=== PATIENT | male | born 1955 | race Caucasian/White ===

== ENCOUNTER 2019-08-09 13:57 | Inpatient (IN) | payer BC ==
[2019-08-09] MEDS ORDERED: MORPHINE 4 MG/ML SYR IV PRN (15:08)
[2019-08-09 15:26] VITALS: BMI 37.5
--- NOTE | 2019-08-09 15:43 | RAD REPORT ---
EXAM DESCRIPTION: RAD - Chest Pa And Lat (2 Views) - 08/09/2019 3:31 pm CLINICAL HISTORY: DIVERTICULITIES WITH MICROPERFORATION Chest pain. COMPARISON: CHEST PA AND LAT 2 VIEW dated 01/17/2009; CHEST PA AND LAT 2 VIEW dated 05/21/2003; Abdome n Pelvis W Contrast dated 08/09/2019 FINDINGS: Linear atelectasis is present in the left lung base with a small left pleural effusion. Th e lungs are otherwise emphysematous. The heart is mildly enlarged in size. No displaced fractures.
[2019-08-09 15:45] LABS: Absolute Lymphocytes (CBC) 1.7 K/uL (0.7-4.9); Basophils % 0.8 % (0-1.3); Lymphocytes % 15.8 % (15.3-44.8); MPV 7.7 fL (7.6-11.3); RBC Red Blood Cell Count 4.12 M/uL (4.33-5.43)
[2019-08-09] MEDS ORDERED: INFLUENZA VACCINE (for 3y+) 0.5 ML DOSE IMVAC ONE (16:00)
[2019-08-09] MEDS ORDERED: PNEUMOCOCCAL VACCINE 0.5 ML IMVAC ONE (16:00)
[2019-08-09] MEDS: NACHLORIDE 0.45% 1,000 ML IV SCH ×2 (16:00→22:40)
[2019-08-09 16:30] LABS: ALT/SGPT 22 U/L (12-78); AST/SGOT 20 U/L (15-37); Albumin 3.1 g/dL (3.4-5.0); Alkaline Phosphatase 79 U/L (45-117); BUN Blood Urea Nitrogen 10 mg/dL (7-18); Bicarbonate 25 mmol/L (21-32); Bilirubin Total 0.4 mg/dL (0.2-1.0); Carcinoembryonic Antigen 33.9 ng/mL (0-5.0); Glucose Level 85 mg/dL (74-106); Potassium 3.8 mmol/L (3.5-5.1); Sodium Level 139 mmol/L (136-145)
[2019-08-09] MEDS: METRONIDAZOLE 500mg IVPB 500 MG/100 ML BAG IV SCH ×2 (17:14→23:33)
[2019-08-09 18:23] LABS: Urine Appearance CLEAR; Urine Bilirubin NEGATIVE (NEG); Urine Blood NEGATIVE (NEG); Urine Color YELLOW; Urine Glucose NEGATIVE (NEG); Urine Protein NEGATIVE (NEG); Urine Specific Gravity >=1.030 (1.005-1.030); Urine Urobilinogen 0.2 mg/dL (0.2-1.0)
--- NOTE | 2019-08-09 19:14 | RAD REPORT ---
EXAM DESCRIPTION: US - Liver Only - 08/09/2019 6:39 pm CLINICAL HISTORY: radiologist recommends liver us to r/o mets Abdominal pain COMPARISON: Abdomen Pelvis W Contrast dated 08/09/2019 FINDINGS: The liver demonstrates diffuse fatty infiltration.Evaluation of the liver parenchyma was v leeanne limited due to the lack of sonographic penetrance and bowel gas shadowing. Assessment of the princess ent's known liver masses on recent CT was not adequate due to these limitations.Recommend MR liver pr otocol for further assessment.
[2019-08-09 20:27] LABS: Urine Culture Reflex Order NOT NEEDED
[2019-08-09 20:28] LABS: Urine Bacteria <20 /HPF (NONE SEEN); Urine RBC NONE SEEN /HPF (NONE SEEN)
[2019-08-09] MEDS: HYDROCODONE/APAP 5/325 MG TAB PO PRN (20:32)
[2019-08-09] MEDS: CIPROFLOXACIN 400 MG/200 ML IVPB IV SCH (20:32)
[2019-08-10] MEDS: NACHLORIDE 0.45% 1,000 ML IV SCH ×5 (02:34→18:40)
--- NOTE | 2019-08-10 05:25 | HP ---
Date of Admission: 08/09/2019 Chief Complaint: Left lower quadrant pain of 2 weeks duration. History Of Present Illness: A 64-year-old male was brought to the office with history of 2 weeks of abdominal pain. He was found to be very tender in the left lower quadrant with a possibility of acut e diverticulitis. Patient had a CAT scan done. This showed evidence of diverticulitis with microper foration and liver mass. Patient is admitted for IV antibiotic therapy and further investigation. The patient claims that he did not have any fever, chills, or rigors. Patient was advised colonoscopy. However, he has not don e yet, which needs to be done in this setting, even though it is diverticulitis in view of the liver mass. This was explained to the patient. Past Medical History: Positive for hypertension, hypothyroidism, chronic back problems. Family History: Noncontributory. Personal History: No known allergies. Home Medicines: Avapro, Levoxyl. Review of Systems: No chest pain or shortness of breath. Physical Examination: General: Revealed 64-year-old male in moderate pain. HEENT: No icterus. Neck: Supple. JVD negative. Chest: Clear. Heart: Regular abdomen tender left lower quadrant. No palpable mass. Extremities: No edema. Laboratory Data: White count 10.5, hemoglobin 12.4. Chem profile essentially negative. CEA 33.9. CAT scan of the abdomen and pelvis evidence of moderate diverticulitis with microperforation and live r mass. Chest x-ray mild pleural effusion. Assessment: 1.Acute diverticulitis of 2 weeks duration. 2.Possible metastatic disease. 3.Hypertension. 4.Hypothyroidism. Plan: Patient is on IV antibiotics and his blood pressure medication restarted. Surgical consultati on has been done. KARLOS/JONATHAN Voice ID: [id number]
[2019-08-10] MEDS: LEVOTHYROXINE SOD 0.025 MG TAB PO SCH (06:00)
[2019-08-10] MEDS: METRONIDAZOLE 500mg IVPB 500 MG/100 ML BAG IV SCH ×4 (06:46→23:39)
[2019-08-10] MEDS: HYDROCODONE/APAP 5/325 MG TAB PO PRN ×2 (08:01→17:24)
[2019-08-10] MEDS: CIPROFLOXACIN 400 MG/200 ML IVPB IV SCH ×2 (08:02→21:05)
[2019-08-10] MEDS ORDERED: IRBESARTAN 150 MG TAB PO SCH (09:00)
--- NOTE | 2019-08-10 10:40 | CON ---
Date of Consultation: 08/10/2019 Reason For Consultation: Abdominal pain. History Of Present Illness: Patient is a 64-year-old gentleman comes in with 2 to 3 week history of lower abdominal pain mostly on the left side. He denies any nausea or vomiting. No diarrhea or cons tipation. No blood in the stool. No dysuria or hematuria. No sore throat, runny nose, cough, heada ches, or dizziness. No chest pain. No fever or chills. No weight loss. Patient never had a colono scopy. No family history of colorectal malignancy. Review of Systems: Otherwise unremarkable. Past Medical History: Significant for hypertension, hypothyroidism, chronic back problems. Past Surgical History: Right inguinal hernia, foot surgery and rhinoplasty. Allergies: NONE. Social History: Patient does not smoke. Drinks occasionally. Family History: Noncontributory. Physical Examination: Vital Signs: Stable. He is afebrile. He is awake, alert, and oriented x3. Head and Neck: Cranial nerves 2 through 12 are grossly within normal limits. No neck masses. No JV D. Throat clear. Neck is supple. Chest: Clear. Heart: S1, S2. Abdomen: Soft, nondistended. Positive bowel sounds. Positive left lower quadrant tenderness with r ebound. No rigidity or guarding. Extremity: Adequately perfused. Nontender. Neuro: Nonfocal. Laboratory Data: Shows a white count of 10.5, H and H of 12.4 and 36. His MCV is normal. There is a slight left shift. His chemistry is reviewed. Of interest is that his CEA level is 33.9. CAT sca n of the abdomen and pelvis and ultrasound reviewed with radiologist, ultrasound was essentially nond iagnostic. CT of the abdomen and pelvis shows moderate sigmoid diverticulitis with microperforation. 8 air bubbles are contained within the sigmoid mesocolon. Multiple hepatic lesions may indicate me tastasis. Assessment: 64-year-old gentleman with acute sigmoid diverticulitis with liver lesions, possibly met s. Recommendations: At this time, we will go ahead and get an MRI of the liver to see if those are inde ed solid masses and requiring biopsy or not, then we will proceed with IV antibiotics until he is sue erating diet and to oral antibiotics. He will need a colonoscopy in 4-6 weeks and I would recommend that he get to a colorectal surgeon for definitive surgery as an outpatient. The plan of care discussed with the patient, family and Dr. Junior. /JONATHAN Voice ID: [id number] Report ID: [id number]
--- NOTE | 2019-08-10 11:38 | RAD REPORT ---
EXAM DESCRIPTION: MRI - Mri Abdomen W/Wo Cont - 08/10/2019 11:17 am CLINICAL HISTORY: Multiple liver masses, limited visualization at sonography a nonspecific CT charac teristics COMPARISON: Liver ultrasound August 09, 2019, CT abdomen and pelvis August 09, 2019 TECHNIQUE: Multiplanar imaging of the abdomen was performed using T1 weighted, T2 weighted, T2 haste fat saturation, T1 inphase/ opposed phase imaging and post contrast T1 fat saturation sequencing. De layed images at 10 and 20 minutes obtained. A 20 milliliter MultiHance contrast volume was utilized. FINDINGS: Normal size liver is present. Multiple liver lesions are seen matching the CT study. The l esions are hypointense to the liver parenchyma on T1 weighted imaging. On T2 imaging the masses are n ot sharply demarcated. Signal is slightly increased to the liver parenchyma. No measurable change in imaging characteristics on opposed phase T1 imaging. Postcontrast imaging shows some variability in t he enhancement pattern. Generally, the lesion show a peripheral irregular rim enhancement pattern. On T1 weighted imaging most of the lesions remain hypointense even through 20 minute delayed imaging. T he MRI imaging shows several small sub centimeter hypointense lesions that were not clearly evident o n CT imaging. The spleen, pancreas, gallbladder, biliary tree, adrenal glands and kidneys show no suspicious findin gs. The inferior most aspect of the kidneys were obscured. No ascites or bulky lymphadenopathy. No omental thickening. IMPRESSION: Numerous rim enhancing lesions scattered throughout the right and left lobes of the live r. Lesions match the findings seen on the CT study with a few additional under 1 centimeter size lesi ons seen. The enhancement pattern is suspicious and lesions are most likely metastatic. No abnormal lymphadenopathy seen. No ascites identified.
[2019-08-11] MEDS: NACHLORIDE 0.45% 1,000 ML IV SCH ×4 (01:20→22:09)
[2019-08-11] MEDS: METRONIDAZOLE 500mg IVPB 500 MG/100 ML BAG IV SCH ×3 (07:19→18:00)
[2019-08-11] MEDS: HYDROCODONE/APAP 5/325 MG TAB PO PRN ×3 (07:19→22:09)
[2019-08-11] MEDS: LEVOTHYROXINE SOD 0.025 MG TAB PO SCH (07:19)
[2019-08-11] MEDS: CIPROFLOXACIN 400 MG/200 ML IVPB IV SCH ×2 (08:30→22:10)
[2019-08-12] MEDS: METRONIDAZOLE 500mg IVPB 500 MG/100 ML BAG IV SCH ×5 (01:11→23:17)
[2019-08-12] MEDS: NACHLORIDE 0.45% 1,000 ML IV SCH ×5 (05:51→23:17)
[2019-08-12] MEDS: HYDROCODONE/APAP 5/325 MG TAB PO PRN ×3 (05:52→20:28)
[2019-08-12] MEDS: LEVOTHYROXINE SOD 0.025 MG TAB PO SCH (05:53)
[2019-08-12] MEDS: CIPROFLOXACIN 400 MG/200 ML IVPB IV SCH ×2 (08:34→20:29)
[2019-08-12 08:39] VITALS: O2SAT 95
--- NOTE | 2019-08-12 13:45 | PN ---
Patient is doing better. He is tolerating the liquid diet. Abdominal palpation still is very tender in the left lower quadrant. No palpable mass. In view of response, he will be continued on the padmini e antibiotics. KARLOS/JONATHAN Voice ID: [id number] Report ID: [id number]
[2019-08-13] MEDS: HYDROCODONE/APAP 5/325 MG TAB PO PRN ×2 (03:13→08:27)
[2019-08-13] MEDS: LEVOTHYROXINE SOD 0.025 MG TAB PO SCH (05:39)
[2019-08-13] MEDS: NACHLORIDE 0.45% 1,000 ML IV SCH (05:39)
[2019-08-13] MEDS: METRONIDAZOLE 500mg IVPB 500 MG/100 ML BAG IV SCH (05:39)
[2019-08-13] MEDS: CIPROFLOXACIN 400 MG/200 ML IVPB IV SCH (08:18)
[2019-08-13] MEDS ORDERED: ENOXAPARIN 30 MG/0.3 ML SQ SCH (09:00)
[2019-08-13 09:04] VITALS: BP 134/66; TEMP 97.6
--- NOTE | 2019-08-13 12:23 | PN ---
Patient is doing much better. His tenderness on the left side of the abdomen is decreased. He had m ostly liquid stools and gas. There was no blood in the stools. In view of his improvement, I will t alk to the surgeon regarding his discharge plan. KARLOS/JONATHAN Voice ID: [id number] Report ID: [id number]
--- NOTE | 2019-08-14 14:24 | PN ---
Date of Progress Note: 08/11/2019 Subjective: Please note, the reason is hospital phones were not working and dictation was not availa ble in this general way. Patient on Wednesday was without any complaints. Vital signs were stable. Af ebrile. MRI reviewed. He did have those irregular messages, but they were not amenable to percutane ous biopsy per Radiology. His white count was normal. His vitals were stable. He was afebrile. Hi s abdomen was much less tender. There was no rebound, rigidity, or, guarding. Assessment: Acute sigmoid diverticulitis with liver masses, likely secondary to primary colon. Recommendations: At this time, continue IV antibiotics. We will begin diet, get dietary consultatio n. He can be discharged home on oral antibiotics, Cipro and Flagyl for 2 weeks. He can follow up wi th me in 1 to 2 weeks in my office and I will refer him to a colorectal surgeon for definitive surger y of the colon as well as biopsy of the liver masses. Plan of care was discussed in detail with the patient's family and Dr. Junior. ALBA/JONATHAN Voice ID: [id number] Report ID: [id number]
== END 2019-08-13 11:38 | disposition home or self-care (01) | DRG 392 ==
LOC: 4TH 14:25
PROVIDERS: ADMIT Internal Medicine; ATTEND Internal Medicine
DX: K57.20 Diverticulitis of large intestine with perforation and abscess without bleeding (principal); I10 Essential (primary) hypertension; E03.9 Hypothyroidism, unspecified; R16.0 Hepatomegaly, not elsewhere classified
CPT/HCPCS: 36415; 71046; 74177; 76705; 80053; 81001; 82378; 82565; 84520; 85025; 87086; 87088; J0744; J1650; Q9967

== ENCOUNTER → 2019-09-25 | Day surgery (SDC) | payer BC ==
[~2019-09-25] MED LIST: LIDOCAINE 1% MPF 5 ML VIAL ONE; PROPOFOL 200 MG/20 ML VIAL IV ONE; Ringers Lactate 1,000 ML IV ONE
[2019-09-25 08:26] LABS: Absolute Lymphocytes (CBC) 1.2 K/uL (0.7-4.9); Basophils % 0.5 % (0-1.3); Hematocrit 36.9 % (39.6-49.0); Lymphocytes % 12.1 % (15.3-44.8); MPV 7.8 fL (7.6-11.3); RBC Red Blood Cell Count 4.28 M/uL (4.33-5.43)
--- NOTE | 2019-09-25 09:01 | ENDO RPT ---
[address], [address] COLONOSCOPY PROCEDURE REPORT EXAM DATE: 09/25/2019 PATIENT NAME: Mikael Urbina MR #: [id number] BIRTHDATE: 1955 ATTENDING: Orestes Gross M.D. STATUS: outpatient DENTAL TECHNICIAN: Maryann Willis RN, Taylor Flores, and Emily Padilla RN INDICATIONS: The patient is a 64 yr old Male here for a colonoscopy due to diverticulitis, abnormal CT of abdomen, and elevated CEA levels PROCEDURE PERFORMED: Colonoscopy MEDICATIONS: Per Anesthesia. ESTIMATED BLOOD LOSS: None CONSENT: The patient understands the risks and benefits of the procedure and understands that these risks include, but are not limited to: sedation, allergic reaction, infection, perforation and/or bleeding. Alternative means of evaluation and treatment include, among others: physical exam, x-rays, and/or surgical intervention. The patient elects to proceed with this endoscopic procedure. DESCRIPTION OF PROCEDURE: During intra-op preparation period all mechanical medical equipment was checked for proper function. Hand hygiene and appropriate measures for infection prevention was taken. Procedure, possible complications, alternatives including, but not limited to possibility of bleeding, perforation, tear, infection, sepsis, need for surgery, need for blood transfusion, were explained to the patient. After the risks, benefits and alternatives of the procedure were thoroughly explained, Informed consent was verified, confirmed and timeout was successfully executed by the treatment team. The patient was placed in the left lateral position. A digital rectal exam was performed and revealed an enlarged prostate. After appropriate level of anesthesia, the scope was passed. The EC-[id number] ([id number]) endoscope was introduced through the anus and advanced to the descending colon. The quality of the prep was fair. The instrument was then slowly withdrawn as the colon was fully examined. Scope withdrawal time was 17 minutes. COLON FINDINGS: Abnormal mucosa was found in the descending colon and distal descending colon. Retroflexed views revealed no abnormalities. The scope was then completely withdrawn from the patient and the procedure terminated. ADVERSE EVENTS: There were no complications. IMPRESSIONS: 1. Abnormal mucosa was found in the descending colon and distal descending colon 2. Descending colon mass RECOMMENDATIONS: 1. follow-up: office 2 day(s) 2. surgery RECALL: Return in 1 year(s) for Colonoscopy. Orestes Gross M.D. eSigned: Orestes Gross M.D. 09/25/2019 9:00 AM cc: Donavan Umana M.D. CPT CODES: ICD9 CODES: PATIENT NAME: Mikael UrbinaAkiko MR#: [id number]
[2019-09-25 09:35] VITALS: BP 133/73; TEMP 98.8; O2SAT 95
== END | disposition home or self-care (01) ==
LOC: OR 07:26
PROVIDERS: ATTEND Surgery
PROC: 0DJD8ZZ Inspection of Lower Intestinal Tract, Via Natural or Artificial Opening Endoscopic (ICD-10-PCS; principal; 2019-09-25 08:30)
DX: K63.89 Other specified diseases of intestine (principal); E03.9 Hypothyroidism, unspecified; I10 Essential (primary) hypertension
CPT/HCPCS: 85025; 36415; 45378; J2704; J7120